=== PATIENT | male | born 1935 | race Caucasian/White ===

== ENCOUNTER 2017-04-03 13:59 | Inpatient (IN) | payer MEDICARE, BC ==
[~2017-04-03] VITALS: Ht 175.3 cm; Wt 52.2 kg
--- NOTE | 2017-04-03 14:00 | NUR ---
JUS FROM [facility] DT FEVER SINCE 1100 TODAY, NAD NOTED, VSS, PUT ON MONITOR, BLOOD SAMPLE SENT TO LAB, WAITING FOR MD HARRIS.
[2017-04-03] MEDS ORDERED: ACETAMINOPHEN 650 MG/SUPP.RECT RC ONE ×3 (14:30→16:43)
[2017-04-03] MEDS ORDERED: IV NS 0.9% 1,000 ML BAG IV ONE (14:30)
[2017-04-03 14:50] LABS: BASOPHILS % (AUTO) 0.1 % (0.0-2.0); HEMATOCRIT 32 % (39-51); HEMOGLOBIN 10.8 g/dL (13.5-17.5); LYMPHOCYTES # (AUTO) 0.6 /CMM (0.8-4.8); LYMPHOCYTES % (AUTO) 6.2 % (20.0-44.0); MEAN CORPUSCULAR HEMOGLOBIN 31 PG (26.0-33.0); MEAN CORPUSCULAR HGB CONC 34 g/dl (31.0-36.0); MEAN CORPUSCULAR VOLUME 92 fL (80-96); MONOCYTES # (AUTO) 0.1 /CMM (0.1-1.30); MONOCYTES % (AUTO) 1.2 % (2.0-12.0); NEUTROPHILS # (AUTO) 8.9 /CMM (1.8-8.9); NEUTROPHILS % (AUTO) 92.5 % (43.0-81.0); PLATELET COUNT (AUTO) 348 /CMM (150-450); RDW COEFFICIENT OF VARIATION 13.2 (11.5-15.0); RED BLOOD CELL COUNT(AUTO) 3.46 MIL/uL (4.5-6.0); WHITE BLOOD COUNT (AUTO) 9.6 K/uL (4.3-11.0)
[2017-04-03 14:57] LABS: INR 1.1 (0.87-1.13); PROTHROMBIN TIME 11.4 SECS (9.5-12.7)
[2017-04-03] MEDS ORDERED: MAGN400O6 GT (14:58)
[2017-04-03] MEDS ORDERED: CARB-93 GT (14:58)
[2017-04-03] MEDS ORDERED: ASPI81TA2 GT (14:58)
[2017-04-03] MEDS ORDERED: NA P133E RC (14:58)
[2017-04-03] MEDS ORDERED: ZOLP10TA2 GT (14:58)
[2017-04-03] MEDS ORDERED: DOCU50LI GT (14:58)
[2017-04-03] MEDS ORDERED: BISA10SU8 RC (14:58)
[2017-04-03] MEDS ORDERED: LACT-209 GT (14:58)
[2017-04-03] MEDS ORDERED: AMIN30LI4 GT (14:58)
[2017-04-03] MEDS ORDERED: ASCO500S2 GT (14:58)
[2017-04-03] MEDS ORDERED: IPRA0.2S9 IH (14:58)
[2017-04-03] MEDS ORDERED: ZINC220C8 GT (14:58)
[2017-04-03] MEDS ORDERED: ACET-2605 GT (14:58)
[2017-04-03] MEDS ORDERED: MULT1TAB11 GT (14:58)
[2017-04-03] MEDS ORDERED: METO25TA20 GT (14:58)
[2017-04-03] MEDS ORDERED: ALBU1.257 IH (14:58)
[2017-04-03] MEDS ORDERED: ACET650S26 GT (14:58)
[2017-04-03 15:01] LABS: CALCIUM, SERUM 8.9 mg/dL (8.5-10.1); CARBON DIOXIDE 27 mmol/L (21-32); CHLORIDE 112 mmol/L (98-107); CREATININE 1.5 mg/dL (0.6-1.3); GLUCOSE 136 mg/dL (74-106); POTASSIUM 4.5 mmol/L (3.5-5.1); SODIUM SERUM 150 mmol/L (136-145); UREA NITROGEN, BLOOD 75 mg/dL (7-18)
--- NOTE | 2017-04-03 15:03 | NUR ---
BED ASSIGNMENT 106
[2017-04-03 15:06] LABS: ALANINE AMINOTRANSFERASE 15 U/L (12-78); ALBUMIN 2.3 g/dL (3.4-5.0); ALKALINE PHOSPHATASE 85 U/L (46-116); ASPARTATE AMINOTRANSFERASE 90 U/L (15-37); BILIRUBIN,DIRECT 0.1 mg/dL (0.0-0.2); BILIRUBIN,TOTAL 0.7 mg/dL (0.2-1.0); TOTAL PROTEIN, SERUM 6.9 g/dL (6.4-8.2)
[2017-04-03 15:08] LABS: TROPONIN I 0.138 ng/mL (0.00-0.056)
[2017-04-03 15:28] LABS: APPEARANCE,URINE Clear (CLEAR); BILIRUBIN,URINE Negative (NEGATIVE); BLOOD, URINE Trace-intact Ery/uL (NEGATIVE); COLOR,URINE Dark (YELLOW); KETONES,URINE Trace (NEGATIVE); LEUKOCYTE ESTERASE ,URINE Negative (NEGATIVE); NITRITE, URINE Negative (NEGATIVE); PROTEIN,URINE 30 mg/dl (NEGATIVE); UGLUCOSE Negative (NEGATIVE)
[2017-04-03 15:42] LABS: WBC,URINE 0-2 /HPF (0-3)
--- NOTE | 2017-04-03 15:42 | NUR ---
CALLED DR OSORIO FOR PT ADMIT MESSAGE LEFT
[2017-04-03 15:43] LABS: BACTERIA,URINE Few /HPF (None Seen); SQUAMOUS EPITHELIAL CELL,UR Few /HPF (None Seen); URINE AMORPHOUS URATE Few /HPF (None Seen)
[2017-04-03 15:47] LABS: COARSE GRANULAR CASTS,URINE Few /LPF (None Seen); FINE GRANULAR CASTS,URINE Few /LPF (None Seen)
[2017-04-03 15:48] LABS: HYALINE CASTS, URINE Rare /LPF (None Seen)
[2017-04-03] MEDS ORDERED: ASPIRIN 300 MG/SUPP.RECT RC ONE ×2 (16:30→16:45)
[2017-04-03] MEDS ORDERED: CEFTRIAXONE 1GM BAG (ER ONLY) 50 ML IV ONE (16:30)
[2017-04-03] MEDS ORDERED: AZITHROMYCIN 500 MG in IV D5W 250 ML IV ONE (16:30)
[2017-04-03] MEDS ORDERED: CEFTRIAXONE 1 G in IV D5W 50 ML IV ONE (17:00)
--- NOTE | 2017-04-03 17:45 | NUR ---
MS1/NCR OPERATOR TO NM1 - ROOM 106 PT ARRIVED VIA GURNEY ACCOMPANIED BY ER NURSE GRACIELA AND ER ART FRAMING MANAGER, WITH PT'S (2) FAMILY MEMBERS. TRANSFERRED TO HOSPITAL BED. ADMITTED PROTOCOL INITIATED. PT IS ADMITTED FOR ASPIRATION PNEUMONIA UNDER THE CARE OF DR. OSORIO. REPORT GIVEN AT BEDSIDE. PT ARRIVED WITH ON GOING IV INFUSION OF AZITHROMYCIN, IV SITE PATENT WITH NO S/S OF INFECTION. YOUSIF CATHETER INTACT NOTED WITH YELLOW URINE OUTPUT. LUNG SOUNDS CLEAR. PT IS COMFORTABLE AT THIS TIME. AWAITING FOR ADMITTING ORDERS. CL WITHIN REACHED AND SAFETY MAINTAINED. ON GOING MONITORING.
[2017-04-03 18:00] VITALS: BP 101/53
[2017-04-03] MEDS ORDERED: FEE PK DOSING 1 MIN EA MC ONE (18:10)
[2017-04-03] MEDS: IV NS 0.9% 1,000 ML IV PRN (18:17)
[2017-04-03] MEDS: ENOXAPARIN SODIUM 30 MG/0.3 ML DISP.SYRIN SQ SCH (18:19)
[2017-04-03] MEDS ORDERED: ALBUTEROL FS 2.5 MG/0.5 ML VIAL.NEB NEB PRN (18:30)
[2017-04-03] MEDS ORDERED: ACETAMINOPHEN 650 MG/SUPP.RECT RC PRN (18:30)
[2017-04-03] MEDS ORDERED: ONDANSETRON 4 MG TAB.RAPDIS PO PRN (18:30)
[2017-04-03] MEDS ORDERED: IPRATROPIUM NEB FS 0.5 MG/2.5 ML AMPUL.NEB NEB PRN (18:30)
--- NOTE | 2017-04-03 19:45 | NUR ---
MS1/RN AM SHIFT END NOTES NO ACUTE CHANGE OF CONDITION NOTED SINCE PT WAS ADMITTED LATE THIS AFTERNOON. PT ENDORSED TO PM NURSE TO CONTINUE CARE, WELL TO COMPLETE ADMITTING PROTOCOLS. WITHIN ON GOING IV INFUSION OF NS @ 100CC/HR, IV SITE PATENT WITH NO S/S OF INFECTION. YOUSIF CATHETER INTACT. CL WITHIN REACHED AND SAFETY MAINTAINED.
[2017-04-03 20:00] VITALS: BP 112/55
[2017-04-03] MEDS: ZOSYN IVPB 2.25 G in IV D5W 50ml IV SCH (20:19)
[2017-04-03] MEDS: VANCOMYCIN 500 MG in IV D5W 100 ML IV SCH (21:10)
[2017-04-04] MEDS: ZOSYN IVPB 2.25 G in IV D5W 50ml IV SCH ×4 (01:23→20:22)
[2017-04-04] MEDS: ALBUTEROL FS 2.5 MG/3 ML VIAL.NEB NEB SCH ×4 (01:30→19:31)
--- NOTE | 2017-04-04 02:30 | NUR ---
RN/MS NOTES: CALLED [facility] AT [phone] TO VERIFY ABOUT THE FLU/PNA VACCINE. PER RAYA Benjamin NURSE " PATIENT HAD DECLINED IN THE BEGINING OF MARCH." PT. RESTING COMFORTABLE. NOT IN ANY ACUTE DISTRESS. GT CLAMPED INPLACE. PT. IS ON NPO STATUS. CALL LIGHT W/ REACH. ALL NEEDS MEET.
[2017-04-04 04:00] VITALS: BP 102/65
[2017-04-04] MEDS: IPRATROPIUM NEB FS 0.5 MG/2.5 ML AMPUL.NEB NEB SCH ×4 (06:00→19:31)
[2017-04-04] MEDS: IV NS 0.9% 1,000 ML IV PRN ×2 (06:17→17:32)
[2017-04-04 06:39] LABS: HEMATOCRIT 26 % (39-51); HEMOGLOBIN 8.7 g/dL (13.5-17.5); LYMPHOCYTES # (AUTO) 0.9 /CMM (0.8-4.8); LYMPHOCYTES % (AUTO) 8.3 % (20.0-44.0); MEAN CORPUSCULAR HEMOGLOBIN 32 PG (26.0-33.0); MEAN CORPUSCULAR HGB CONC 34 g/dl (31.0-36.0); MEAN CORPUSCULAR VOLUME 94 fL (80-96); MONOCYTES # (AUTO) 0.3 /CMM (0.1-1.30); MONOCYTES % (AUTO) 2.6 % (2.0-12.0); NEUTROPHILS # (AUTO) 9.5 /CMM (1.8-8.9); NEUTROPHILS % (AUTO) 89.1 % (43.0-81.0); PLATELET COUNT (AUTO) 270 /CMM (150-450); RDW COEFFICIENT OF VARIATION 14.3 (11.5-15.0); RED BLOOD CELL COUNT(AUTO) 2.72 MIL/uL (4.5-6.0); WHITE BLOOD COUNT (AUTO) 10.6 K/uL (4.3-11.0)
[2017-04-04 06:48] LABS: CALCIUM, SERUM 8.2 mg/dL (8.5-10.1); CARBON DIOXIDE 26 mmol/L (21-32); CHLORIDE 116 mmol/L (98-107); CREATININE 1.1 mg/dL (0.6-1.3); GLUCOSE 107 mg/dL (74-106); POTASSIUM 3.8 mmol/L (3.5-5.1); SODIUM SERUM 153 mmol/L (136-145); UREA NITROGEN, BLOOD 67 mg/dL (7-18)
--- NOTE | 2017-04-04 07:12 | NUR ---
MS/RN NOTES: PT IN BED RESTING W/ NO S/S OF ANY RESPIRATORY DISTRESS NOTED. CALL LIGHT W/ REACH. ALL NEEDS ATTENDED AND MEET. REPORT GIVEN TO THE NEXT SHIFT NURSE FOR VIDAL.
--- NOTE | 2017-04-04 07:30 | NUR ---
RN NOTES RECEIVED PT IN STABLE CONDITION, A&0X1 ON 3L NC NO SOB OR DISTRESS SAT 99. YOUSIF CATH DRAINING TO GRAVITY. GTUBE CLAMPED NO FEEDING. R AC 20G IV SITE DRY AND INTACT WITH NS@100ML/HR. BED LOCKED AND IN LOWEST POSITION, CALL LIGHT WITHIN REACH, SIDE RAILS UPX3, WILL CONT TO MONITOR.
[2017-04-04 08:00] VITALS: BP 116/68
[2017-04-04] MEDS: PANTOPRAZOLE 40 MG TABLET.DR PO SCH (08:39)
[2017-04-04] MEDS: Z GUARD REMEDY 2 OZ OINT TP SCH (08:40)
[2017-04-04] MEDS: VANCOMYCIN 500 MG in IV D5W 100 ML IV SCH ×2 (09:48→20:53)
[2017-04-04] MEDS ORDERED: ZOLPIDEM TARTRATE 10 MG TABLET GT PRN (11:00)
[2017-04-04] MEDS ORDERED: NA PHOS,M-B/NA PHOS,DI-BA 1 EA ENEMA RC PRN (11:00)
[2017-04-04] MEDS ORDERED: BISACODYL SUPP (10 MG) 10 MG/SUPP.RECT SUPP.RECT RC PRN (11:00)
[2017-04-04] MEDS ORDERED: ALBUTEROL HALF STRENGTH 1.25 MG/3 ML VIAL.NEB IH PRN (11:00)
[2017-04-04] MEDS ORDERED: MAGNESIUM HYDROXIDE 30 ML UDC GT PRN (11:00)
[2017-04-04] MEDS ORDERED: ACETAMINOPHEN 650 MG/20.3 ML UDC GT PRN (11:00)
[2017-04-04] MEDS ORDERED: IPRATROPIUM NEB FS 0.5 MG/2.5 ML AMPUL.NEB IH PRN (11:00)
[2017-04-04] MEDS ORDERED: METOPROLOL TARTRATE 25 MG TABLET GT PRN (11:44)
[2017-04-04] MEDS: ASPIRIN 81 MG TAB.CHEW GT SCH (12:15)
[2017-04-04] MEDS: ZINC SULFATE 220 MG CAPSULE GT SCH (12:15)
[2017-04-04] MEDS: DOCUSATE SODIUM LIQ 100 MG/10 ML UDC GT SCH (12:15)
[2017-04-04] MEDS: FIBERSOURCE HN 1,000 ML BOTTLE GT PRN (14:11)
[2017-04-04 16:00] VITALS: BP 118/68
--- NOTE | 2017-04-04 18:25 | NUR ---
RN NOTES PT REMAINED IN STABLE CONDITION THROUGHOUT THE SHIFT, NO SIGNIFICANT CHANGES, NO SOB OR DISTRESS. GTF STARTED, PT TOLERATING WELL. HOB ELEVATED, ALL NEEDS MET. PT CLEANED/TURNED/REPOSITIONED. BED LOCKED AND IN LOWEST POSITION, CALL LIGHT WITHIN REACH, SIDE RAILS UPX3.
--- NOTE | 2017-04-04 19:30 | NUR ---
MS/RN NOTES: RECEIVED PT. IN BED W/ HOB ELEVATED AT ALL TIMES. A/O X 1 FOLLOWS COMMANDS AND VERBAL TO CALLING HIS NAME. W/ O2 @ 3LPM VIA N/C SAT. 99%. NOT IN ANY ACUTE RESPIRATORY DISTRESS NOTED. W/ GTF IN PLACE TOLERATING WELL . 10 CC OF RESIDUAL NOTED. FLUSED AND PATENT. CALL LIGHT W/REACH. ALL NEEDS MEET. WILL CONTINUE TO MONITOR.
[2017-04-04 20:00] VITALS: BP 113/67
[2017-04-04] MEDS: ENOXAPARIN SODIUM 30 MG/0.3 ML DISP.SYRIN SQ SCH (20:28)
[2017-04-05] MEDS: ZOSYN IVPB 2.25 G in IV D5W 50ml IV SCH ×3 (01:05→13:27)
[2017-04-05] MEDS: ALBUTEROL FS 2.5 MG/3 ML VIAL.NEB NEB SCH ×4 (01:13→20:03)
[2017-04-05] MEDS: IPRATROPIUM NEB FS 0.5 MG/2.5 ML AMPUL.NEB NEB SCH ×4 (01:13→20:03)
[2017-04-05] MEDS: FIBERSOURCE HN 1,000 ML BOTTLE GT PRN ×2 (03:28→18:08)
[2017-04-05 04:00] VITALS: BP 129/68
--- NOTE | 2017-04-05 04:15 | NUR ---
RN/MS NOTES: T- 100.2 NOTED. PRN TYLENOL GIVEN VIA GT. WILL CONTINUE TO MONITOR. CALL LIGHT W/ REACH. NOT IN ANY ACUTE DISTRESS NOTED.
[2017-04-05 05:08] VITALS: BP 129/68
--- NOTE | 2017-04-05 05:09 | NUR ---
RN /MS NOTES: T-98.2. PT. RESTING COMFORTABLE IN BED. TURNED AND RESPOSITIONED Q 2 HRS. GTF TOLERATING WELL. ALL NEEDS MEET.
[2017-04-05] MEDS: IV NS 0.9% 1,000 ML IV PRN (06:13)
--- NOTE | 2017-04-05 06:48 | NUR ---
RN/MS NOTES: PT. IN BED RESTING W/ HOB ELEVATED. ON ASPIRATION AND SAFETY PRECAUTION MAINTAINED. ON GTF TOLERATING WELL. ALL NEEDS MEET AND ATTENDED. REPORT GIVEN TO THE NEXT SHIFT NURSE FOR VIDAL.
[2017-04-05 07:14] LABS: HEMATOCRIT 26 % (39-51); HEMOGLOBIN 8.6 g/dL (13.5-17.5); LYMPHOCYTES # (AUTO) 0.7 /CMM (0.8-4.8); LYMPHOCYTES % (AUTO) 5.1 % (20.0-44.0); MEAN CORPUSCULAR HEMOGLOBIN 31 PG (26.0-33.0); MEAN CORPUSCULAR HGB CONC 33 g/dl (31.0-36.0); MEAN CORPUSCULAR VOLUME 94 fL (80-96); MONOCYTES # (AUTO) 0.3 /CMM (0.1-1.30); MONOCYTES % (AUTO) 2.5 % (2.0-12.0); NEUTROPHILS % (AUTO) 92.4 % (43.0-81.0); PLATELET COUNT (AUTO) 314 /CMM (150-450); RDW COEFFICIENT OF VARIATION 14.5 (11.5-15.0); RED BLOOD CELL COUNT(AUTO) 2.75 MIL/uL (4.5-6.0)
--- NOTE | 2017-04-05 07:17 | NUR ---
RN NOTES RECEIVED PT IN STABLE CONDITION, RESTING IN BED. ON 3L NC, NO SOB OR DISTRESS NOTED. A&0X1, ABLE TO FOLLOW SIMPLE COMMANDS/ANSWER SIMPLE QUESTIONS. GTF AT 55ML/HR NO RESIDUAL, TOLERATING WELL. L AC 20G IVF AT 100ML/HR. YOUSIF DRAINING TO GRAVITY, YELLOW IN COLOR. BED LOCKED AND IN LOWEST POSITION, CALL LIGHT WITHIN REACH, HOB ELEVATED, SIDE RAILS UPX3, WILL CONT TO MONITOR.
[2017-04-05 07:29] LABS: CALCIUM, SERUM 7.9 mg/dL (8.5-10.1); CARBON DIOXIDE 24 mmol/L (21-32); CHLORIDE 120 mmol/L (98-107); CREATININE 0.9 mg/dL (0.6-1.3); GLUCOSE 166 mg/dL (74-106); MAGNESIUM 2.2 mg/dL (1.8-2.4); POTASSIUM 3.6 mmol/L (3.5-5.1); SODIUM SERUM 154 mmol/L (136-145); UREA NITROGEN, BLOOD 49 mg/dL (7-18)
[2017-04-05 08:00] VITALS: BP 131/73
[2017-04-05] MEDS: PANTOPRAZOLE 40 MG TABLET.DR PO SCH (08:34)
[2017-04-05] MEDS: MULTIVIT, IRON, MIN NO. 8, FA 1 TAB PO SCH (08:34)
[2017-04-05] MEDS: DOCUSATE SODIUM LIQ 100 MG/10 ML UDC GT SCH (08:34)
[2017-04-05] MEDS: ASCORBIC ACID 500 MG TABLET PO SCH (08:34)
[2017-04-05] MEDS: ASPIRIN 81 MG TAB.CHEW GT SCH (08:34)
[2017-04-05] MEDS: ZINC SULFATE 220 MG CAPSULE GT SCH (08:34)
[2017-04-05] MEDS: Z GUARD REMEDY 2 OZ OINT TP SCH (08:35)
[2017-04-05] MEDS: VANCOMYCIN 500 MG in IV D5W 100 ML IV SCH (09:18)
--- NOTE | 2017-04-05 13:07 | NUR ---
WOUND CARE CONSULT PATIENT SEEN AND SKIN ASSESSED. PATIENT NOTED TO MOISTURE RELATED EXCORIATION ON THE BUTTOCKS AND A PUSTULE ON UPPER BACK, POA. ROLO MILLIGAN, PLACED TREATMENT ORDERS OF BIANCA WELL TURNING SCHEDULE TO ASSIST IN PATIENT TURNING. HEEL FLOATING ORDER ADDED. PATIENT TONY 11; NEEDS TOTAL ASSISTANCE WITH TURNING AND REPOSITIONING. CARE PLAN IN PLACE. PT ON STRIKER ISOFLEX AIR MATTRESS. WILL CONTINUE TO FOLLOW PATIENT NEEDED Addendum: 04/05/17 at 1310 by CRYSTAL NULL RN Amended: Links added.
[2017-04-05 16:00] VITALS: BP 133/68
[2017-04-05] MEDS: PIPERACILLIN /TAZOBACTAM 3.375 G in IV D5W 50 ML IV SCH (17:14)
--- NOTE | 2017-04-05 18:21 | NUR ---
RN NOTES PT REMAINED IN STABLE CONDITION THROUGHOUT THE SHIFT, NO SIGNIFICANT CHANGES. ALL NEEDS MET. NO SOB OR DISTRESS NOTED. SIDE RAILS UPX3, BED LOCKED AND IN LOWEST POSITION, CALL LIGHT WITHIN REACH, WILL ENDORSE TO ONCOMING SHIFT.
--- NOTE | 2017-04-05 19:10 | NUR ---
RN OPENING NOTES RECEIVED REPORT FROM NICOLLE DRISCOLL. PATIENT A/A/O X1, ABLE TO FOLLOW SIMPLE COMMANDS. BREATHING EVEN & UNLABORED, ON O2 3L VIA NC. DENIES SOB OR DIFFICULTY BREATHING. PULSES PRESENT. NO DISTRESS NOTED. LEFT AC IV #20 INTACT & PATENT W/ DRESSING CDI & IVF NS @ 100 ML/HR. G-TUBE INTACT & FLUSHING WELL W/ GTF FIBERSOURCE @ 55 ML/HR. NO RESIDUAL NOTED. YOUSIF CATH INTACT, DRAINING YELLOW URINE. DENIES ANY PAIN OR DISCOMFORT @ THIS TIME. SAFETY MEASURES IN PLACE W/ SIDE RAILS UP, BED LOCKED IN LOWEST POSITION, CALL LIGHT WITHIN REACH. WILL CONTINUE TO MONITOR.
[2017-04-05 20:00] VITALS: BP 132/67
[2017-04-05] MEDS: VANCOMYCIN 0.75 GM in IV D5W 250 ML IV SCH (20:01)
[2017-04-05] MEDS: ENOXAPARIN SODIUM 40 MG/0.4 ML DISP.SYRIN SQ SCH (20:02)
[2017-04-06] MEDS: PIPERACILLIN /TAZOBACTAM 3.375 G in IV D5W 50 ML IV SCH ×5 (00:14→23:23)
[2017-04-06] MEDS: ALBUTEROL FS 2.5 MG/3 ML VIAL.NEB NEB SCH ×4 (01:57→20:17)
[2017-04-06] MEDS: IPRATROPIUM NEB FS 0.5 MG/2.5 ML AMPUL.NEB NEB SCH ×4 (01:57→20:17)
[2017-04-06 04:00] VITALS: BP 137/76
[2017-04-06 06:37] LABS: EOSINOPHILS % (AUTO) 0.2 % (0.0-6.0); HEMATOCRIT 26 % (39-51); HEMOGLOBIN 8.6 g/dL (13.5-17.5); LYMPHOCYTES # (AUTO) 0.6 /CMM (0.8-4.8); MEAN CORPUSCULAR HEMOGLOBIN 32 PG (26.0-33.0); MEAN CORPUSCULAR HGB CONC 34 g/dl (31.0-36.0); MEAN CORPUSCULAR VOLUME 94 fL (80-96); MONOCYTES # (AUTO) 0.4 /CMM (0.1-1.30); MONOCYTES % (AUTO) 3.1 % (2.0-12.0); NEUTROPHILS % (AUTO) 91.7 % (43.0-81.0); PLATELET COUNT (AUTO) 292 /CMM (150-450); RDW COEFFICIENT OF VARIATION 14.5 (11.5-15.0); RED BLOOD CELL COUNT(AUTO) 2.71 MIL/uL (4.5-6.0)
--- NOTE | 2017-04-06 07:00 | NUR ---
RN NOTES RECEIVED PT ON BED,A/Ox1 , RESPIRATION EVEN AND UNLABORED, ON O2 AT 3L N/C , NO SOB NOTED, IV F NS AT 100CC/HR RUNNING VIA R FA IV SITE G 22, IV SITE CDI. FIBERSOURCE RUNNING AT 55CC/ HR VIA GT , NO TF RESIDUAL NOTED. YOUSIF CATH INTACT, DRAINING YELLOW URINE. SR UP x3, CALL LIGHT WITHIN EASY REACH, BED LOCKED IN LOWEST POSITION, WILL CONTINUE TO MONITOR PT CLOSELY .
--- NOTE | 2017-04-06 07:22 | NUR ---
RN CLOSING NOTES PATIENT RESTING COMFORTABLY IN BED. NO ACUTE RESPIRATORY DISTRESS. NO SIGNIFICANT CHANGES DURING SHIFT. YOUSIF CATH REMAINED IN PLACE. G-TUBE PATENT W/ NE RESIDUALS NOTED. IV SITE CHANGED. ALL DUE MEDS GIVEN. SAFETY MEASURES IN PLACE. WILL ENDORSE VIDAL TO ONCOMING NURSE.
[2017-04-06 07:48] LABS: CALCIUM, SERUM 8.1 mg/dL (8.5-10.1); CARBON DIOXIDE 27 mmol/L (21-32); CHLORIDE 120 mmol/L (98-107); CREATININE 0.8 mg/dL (0.6-1.3); GLUCOSE 141 mg/dL (74-106); MAGNESIUM 2.1 mg/dL (1.8-2.4); POTASSIUM 3.7 mmol/L (3.5-5.1); SODIUM SERUM 155 mmol/L (136-145); UREA NITROGEN, BLOOD 29 mg/dL (7-18)
[2017-04-06 08:00] VITALS: BP 136/71
[2017-04-06] MEDS: ASPIRIN 81 MG TAB.CHEW GT SCH (08:05)
[2017-04-06] MEDS: ZINC SULFATE 220 MG CAPSULE GT SCH (08:05)
[2017-04-06] MEDS: DOCUSATE SODIUM LIQ 100 MG/10 ML UDC GT SCH (08:05)
[2017-04-06] MEDS: PANTOPRAZOLE 40 MG TABLET.DR PO SCH (08:05)
[2017-04-06] MEDS: MULTIVIT, IRON, MIN NO. 8, FA 1 TAB PO SCH (08:05)
[2017-04-06] MEDS: ASCORBIC ACID 500 MG TABLET PO SCH (08:05)
[2017-04-06] MEDS: VANCOMYCIN 0.75 GM in IV D5W 250 ML IV SCH ×2 (08:07→19:47)
[2017-04-06] MEDS: Z GUARD REMEDY 2 OZ OINT TP SCH (08:08)
[2017-04-06] MEDS: IV NS 0.9% 1,000 ML IV PRN (09:46)
--- NOTE | 2017-04-06 11:00 | NUR ---
RN NOTES DR. OSORIO NOTIFIED REGARDING NA= 155, NEW ORDER GIVEN FOR D5W AT 60CC/HR , CONTINUE TO MONITOR .
[2017-04-06] MEDS ORDERED: IV D5W 1,000 ML IV SCH (12:30)
[2017-04-06] MEDS: IV D5W 1,000 ML IV PRN (13:09)
[2017-04-06 16:00] VITALS: BP 140/77
[2017-04-06] MEDS: FIBERSOURCE HN 1,000 ML BOTTLE GT PRN (16:56)
--- NOTE | 2017-04-06 18:19 | NUR ---
RN NOTES VSS STABLE , PT REMANS THE SAME , NO DISTRESS NOTED, YOUSIF DRAINING TO GRAVITY , TOLERATING TF FIBERSOURCE AT 55CC/ HR WELL , NO RESIDUAL NOTE, SR UP x3, CALL LIGHT WITHIN EASY REACH , NO SIGNIFICANT CHANGES NOTED ON THIS SHIFT.
--- NOTE | 2017-04-06 19:10 | NUR ---
RN OPENING NOTES RECEIVED REPORT FROM DELORIS DRISCOLL. PATIENT A/A/O X1, ABLE TO FOLLOW SIMPLE COMMANDS. BREATHING EVEN & UNLABORED, ON O2 3L VIA NC. DENIES SOB OR DIFFICULTY BREATHING. PULSES PRESENT. RIGHT FOREARM IV #22 INTACT & PATENT W/ DRESSING CDI & IVF D5W @ 60 ML/HR. G-TUBE INTACT & FLUSHING WELL W/ GTF FIBERSOURCE @ 55 ML/HR. NO RESIDUAL NOTED. YOUSIF CATH INTACT, DRAINING YELLOW URINE. DENIES ANY PAIN OR DISCOMFORT @ THIS TIME. SAFETY MEASURES IN PLACE W/ SIDE RAILS UP, BED LOCKED IN LOWEST POSITION, CALL LIGHT WITHIN REACH. WILL CONTINUE TO MONITOR.
[2017-04-06 20:00] VITALS: BP 133/77
[2017-04-06] MEDS: ENOXAPARIN SODIUM 40 MG/0.4 ML DISP.SYRIN SQ SCH (21:09)
[2017-04-07] MEDS: IPRATROPIUM NEB FS 0.5 MG/2.5 ML AMPUL.NEB NEB SCH ×4 (01:57→19:04)
[2017-04-07] MEDS: ALBUTEROL FS 2.5 MG/3 ML VIAL.NEB NEB SCH ×4 (01:57→19:04)
[2017-04-07 04:00] VITALS: BP 149/78
[2017-04-07] MEDS: FIBERSOURCE HN 1,000 ML BOTTLE GT PRN (04:42)
[2017-04-07] MEDS: PIPERACILLIN /TAZOBACTAM 3.375 G in IV D5W 50 ML IV SCH ×2 (05:28→12:46)
--- NOTE | 2017-04-07 07:00 | NUR ---
RN CLOSING NOTES PATIENT NOTED TO BE SWEATING PROFUSELY W/ SOB NOTED. ON O2 3L VIA NC & SATING @ 91-92%. VS & BS CHECKED. PRN METOPROLOL GIVEN FOR BP 184/96 & HR 116. SALES SOLUTIONS REPRESENTATIVE CALLED FOR STAT ABG. STAT CXR ALSO DONE. WILL CONTINUE TO MONITOR & AWAIT RESULTS.
[2017-04-07 07:10] LABS: ABG BASE EXCESS -0.1 mmol/L; ABG PCO2 41.1 mmHg (35.0-45.0); ABG PH 7.397 (7.350-7.450); ABG PO2 69.1 mmHg (75.0-100.0); COHb 0.5 % (0.5-1.5); MetHb 0.3 % (0.0-1.5); O2Hb 92.3 % (94.0-97.0); SITE, ABG Right Radial; VENT MODE, BG nasal cannula
--- NOTE | 2017-04-07 07:30 | NUR ---
RN CLOSING NOTES ABG RESULTS RECEIVED & WNL. PATIENT PLACE ON VENTURI MASK W/ O2 @ 8L D/T PATIENT BEING A MOUTH BREATHER. SATING WELL @ 98%. NO FURTHER SOB NOTED. WILL ENDORSE PENDING CXR RESULTS AND VIDAL TO ONCOMING NURSE.
[2017-04-07 08:00] VITALS: BP 146/75
[2017-04-07 08:05] LABS: CALCIUM, SERUM 8.3 mg/dL (8.5-10.1); CARBON DIOXIDE 27 mmol/L (21-32); CHLORIDE 111 mmol/L (98-107); CREATININE 0.7 mg/dL (0.6-1.3); GLUCOSE 157 mg/dL (74-106); SODIUM SERUM 147 mmol/L (136-145); UREA NITROGEN, BLOOD 22 mg/dL (7-18)
[2017-04-07 08:07] LABS: EOSINOPHILS # (AUTO) 0.1 /CMM (0.0-0.7); EOSINOPHILS % (AUTO) 0.6 % (0.0-6.0); HEMATOCRIT 34 % (39-51); LYMPHOCYTES # (AUTO) 0.9 /CMM (0.8-4.8); LYMPHOCYTES % (AUTO) 4.3 % (20.0-44.0); MEAN CORPUSCULAR HEMOGLOBIN 31 PG (26.0-33.0); MEAN CORPUSCULAR HGB CONC 33 g/dl (31.0-36.0); MEAN CORPUSCULAR VOLUME 94 fL (80-96); MONOCYTES # (AUTO) 0.6 /CMM (0.1-1.30); MONOCYTES % (AUTO) 3.1 % (2.0-12.0); NEUTROPHILS # (AUTO) 18.8 /CMM (1.8-8.9); PLATELET COUNT (AUTO) 412 /CMM (150-450); RDW COEFFICIENT OF VARIATION 14.4 (11.5-15.0); RED BLOOD CELL COUNT(AUTO) 3.56 MIL/uL (4.5-6.0); WHITE BLOOD COUNT (AUTO) 20.5 K/uL (4.3-11.0)
[2017-04-07] MEDS: ASPIRIN 81 MG TAB.CHEW GT SCH (08:42)
[2017-04-07] MEDS: PANTOPRAZOLE 40 MG TABLET.DR PO SCH (08:42)
[2017-04-07] MEDS: DOCUSATE SODIUM LIQ 100 MG/10 ML UDC GT SCH (08:42)
[2017-04-07] MEDS: Z GUARD REMEDY 2 OZ OINT TP SCH (08:42)
[2017-04-07] MEDS: ASCORBIC ACID 500 MG TABLET PO SCH (08:42)
[2017-04-07] MEDS: MULTIVIT, IRON, MIN NO. 8, FA 1 TAB PO SCH (08:42)
[2017-04-07] MEDS: ZINC SULFATE 220 MG CAPSULE GT SCH (08:45)
[2017-04-07] MEDS: VANCOMYCIN 0.75 GM in IV D5W 250 ML IV SCH (08:45)
[2017-04-07] MEDS: IV D5W 1,000 ML IV PRN (08:49)
[2017-04-07] MEDS: BUMETANIDE INJ 0.25 MG/ML VIAL IV SCH ×2 (12:46→18:15)
[2017-04-07] MEDS: IV NS 0.9% 250 ML IV PRN (13:24)
--- NOTE | 2017-04-07 15:18 | NUR ---
SKIP OPERATOR CALLED PATIENT ON RESPIRATORY DISTRESS DESPITE SUCTIONING,
[2017-04-07 15:29] VITALS: BP 90/50
--- NOTE | 2017-04-07 15:37 | NUR ---
S/P CLEARING DISTRIBUTION CLERK DEEP SUCTIONING DONE,PLACED ON 100% NONREBREATHER,STILL ON AGONAL BREATHING,MD NOTIFIED ,PER POLST DNR,FAMILY NOTIFIED ,WILL MONITOR PT.
[2017-04-07 16:00] VITALS: BP_SYST 130; BP_DIAS 64; BP_DIAS 68
--- NOTE | 2017-04-07 16:00 | NUR ---
RN NOTE AT 1515 RT WAS IN ROOM WITH PATIENT WHEN HE STARTED TO DESATURATE. RESEARCH COORDINATOR WAS CALLED. BLOOD GLUCOSE:146, BP:130/64, HR:103, O2 SAT: 54%. PATIENT DNR/DNI STATUS. DEEP SUCTIONING WAS PERFORMED BY RT. PATIENT WAS PUT ON NON-REBREATHER MASK AT 15L. WAS TELEPHONED AND MD NOTIFIED. AT 1600 BP: 90/62, HR; 103 AND O2 99% WITH NON-REBREATHER.
[2017-04-07] MEDS ORDERED: MORPHINE SULFATE INJ 2 MG/ML DISP.SYRIN IV PRN (17:00)
--- NOTE | 2017-04-07 17:02 | NUR ---
DR. OSORIO NOTIFIED AGAIN PT AGONAL BREATHING MADE AWARE OF CODE STATUS PER FAMILY/POLST WITH NEW ORDERS LEFT AND CARRIED OUT.
[2017-04-07] MEDS: MEROPENEM 1 G in IV NS 0.9% 100 ML IV SCH (18:15)
--- NOTE | 2017-04-07 19:30 | NUR ---
RN/MS NOTES: RECEIVED PT. IN BED W/ HOB ELEVATED. NON VERBAL OPENS EYES ONLY TO TACTILE STIMULI. PT.IN NON REBREATHABLE MASK SAT. 100%. O2 TIRATE IT TO 12LPM VIA VENTURI MASK BY R.T. @ 40% SAT. 97 -98%. W/ GTF TOLERATING WELL. W/ IV W/ NO S/S OF INFECTION/INFILTRATION NOTED. PRESENT AT BEDSIDE. CALL LIGHT W/ REACH. WILL CONTINUE TO KEEP A CLOSE MONITOR.
[2017-04-07 20:00] VITALS: BP_SYST 92; BP_SYST 95; BP_DIAS 58
[2017-04-07] MEDS: VANCOMYCIN 1 GM in IV D5W 250 ML IV SCH (20:00)
[2017-04-07] MEDS: ENOXAPARIN SODIUM 40 MG/0.4 ML DISP.SYRIN SQ SCH (20:01)
--- NOTE | 2017-04-07 22:00 | NUR ---
RN/MS NOTES: KISHOR GAVE HER CELL # [phone] OR FARNAM [phone] TO CALL INCASE OF ANY EVENT. AND DAUGHTER LEFT.
--- NOTE | 2017-04-07 22:30 | NUR ---
RN/MS NOTES: PT. DAUGHTER WHO IS A M.D. HERSELF CAME AND WANTED TO FIND OUT PT. LABS AND V/S. MORE FAMILY MEMBERS CAME BY. PT. IN BED W/ NO S/S OF RESPIRATORY DISTRESS NOTED. WILL CONTINUE TO MONITOR CLOSELY.
[2017-04-08] MEDS: ALBUTEROL FS 2.5 MG/3 ML VIAL.NEB NEB SCH ×4 (00:41→19:14)
[2017-04-08] MEDS: IPRATROPIUM NEB FS 0.5 MG/2.5 ML AMPUL.NEB NEB SCH ×4 (00:41→19:14)
[2017-04-08 04:00] VITALS: BP 93/61
[2017-04-08] MEDS: MEROPENEM 1 G in IV NS 0.9% 100 ML IV SCH ×2 (05:02→17:02)
[2017-04-08 06:44] LABS: EOSINOPHILS % (AUTO) 0.2 % (0.0-6.0); HEMATOCRIT 27 % (39-51); HEMOGLOBIN 8.8 g/dL (13.5-17.5); LYMPHOCYTES # (AUTO) 0.8 /CMM (0.8-4.8); LYMPHOCYTES % (AUTO) 5.2 % (20.0-44.0); MEAN CORPUSCULAR HEMOGLOBIN 31 PG (26.0-33.0); MEAN CORPUSCULAR HGB CONC 33 g/dl (31.0-36.0); MEAN CORPUSCULAR VOLUME 92 fL (80-96); MONOCYTES # (AUTO) 0.4 /CMM (0.1-1.30); MONOCYTES % (AUTO) 2.3 % (2.0-12.0); NEUTROPHILS % (AUTO) 92.3 % (43.0-81.0); PLATELET COUNT (AUTO) 346 /CMM (150-450); RDW COEFFICIENT OF VARIATION 14.4 (11.5-15.0); RED BLOOD CELL COUNT(AUTO) 2.88 MIL/uL (4.5-6.0); WHITE BLOOD COUNT (AUTO) 16.2 K/uL (4.3-11.0)
[2017-04-08] MEDS: PANTOPRAZOLE 40 MG TABLET.DR PO SCH (06:46)
[2017-04-08 07:06] LABS: CALCIUM, SERUM 8.1 mg/dL (8.5-10.1); CARBON DIOXIDE 30 mmol/L (21-32); CHLORIDE 110 mmol/L (98-107); CREATININE 0.9 mg/dL (0.6-1.3); GLUCOSE 131 mg/dL (74-106); MAGNESIUM 1.9 mg/dL (1.8-2.4); POTASSIUM 3.7 mmol/L (3.5-5.1); SODIUM SERUM 148 mmol/L (136-145); UREA NITROGEN, BLOOD 30 mg/dL (7-18)
--- NOTE | 2017-04-08 07:07 | NUR ---
RN NOTES: RECEIVED PT ON BED , NONVERBAL , NON VERBAL OPENS EYES ONLY TO TACTILE STIMULI. ON VENTI, MASK AT 30%, O2 SA 96%, FIBERSOURCE AT 55CC/HR RUNNING VIA GT , NO RESIDUAL NOTED, TOLERATING WELL, R FA IV SITE G 22 CDI, BED LOCKED AND IN LOWEST POSITION , CALL LIGHT WITHIN EASY REACH. WILL CONTINUE TO MONITOR CLSOELY
[2017-04-08 08:00] VITALS: BP 95/57
[2017-04-08] MEDS: MULTIVIT, IRON, MIN NO. 8, FA 1 TAB PO SCH (08:11)
[2017-04-08] MEDS: ASPIRIN 81 MG TAB.CHEW GT SCH (08:11)
[2017-04-08] MEDS: ASCORBIC ACID 500 MG TABLET PO SCH (08:11)
[2017-04-08] MEDS: BUMETANIDE INJ 0.25 MG/ML VIAL IV SCH ×2 (08:11→17:02)
[2017-04-08] MEDS: DOCUSATE SODIUM LIQ 100 MG/10 ML UDC GT SCH (08:11)
[2017-04-08] MEDS: ZINC SULFATE 220 MG CAPSULE GT SCH (08:11)
[2017-04-08] MEDS: VANCOMYCIN 1 GM in IV D5W 250 ML IV SCH (08:14)
[2017-04-08] MEDS: Z GUARD REMEDY 2 OZ OINT TP SCH (08:14)
--- NOTE | 2017-04-08 12:00 | NUR ---
RN NOTES O2 SAT 96%. NO SOB NOTED, CONTINUE TO MONITOR.
[2017-04-08 16:00] VITALS: BP 98/68
--- NOTE | 2017-04-08 18:00 | NUR ---
RN NOTES O2 SAT 97%, PT STILL ON VENTI MASK WITH O2 AT6L , VSS STABLE , YOUSIF DRAINING TO GRAVITY WITH YELLOW CLEAR URIN , TOLERATING TF WELL AT 65CC/HR , SR UP x3, CALL LIGHT WITHIN EASY REACH. WILL ENDORSE TO PELLET MACHINE OPERATOR NURSE FOR VIDAL.
--- NOTE | 2017-04-08 19:10 | NUR ---
RN OPENING NOTES RECEIVED REPORT FROM DELORIS DRISCOLL. PATIENT A/A/O X1, RESPONSIVE TO VERBAL & TACTILE STIMULI & ABLE TO FOLLOW SIMPLE COMMANDS. BREATHING EVEN & UNLABORED, ON VENTURI MASK @ 30% AND O2 6L. NO RESPIRATORY DISTRESS NOTED W/ O2 SAT @ 95%. PULSES PRESENT. RIGHT FOREARM IV #22 INTACT & PATENT W/ DRESSING CDI, ON TKO. G-TUBE INTACT & FLUSHING WELL W/ GTF FIBERSOURCE @ 65 ML/HR. NO RESIDUAL NOTED. YOUSIF CATH INTACT, DRAINING YELLOW URINE. NO S/S OF PAIN OR DISCOMFORT @ THIS TIME. SAFETY MEASURES IN PLACE W/ SIDE RAILS UP, BED LOCKED IN LOWEST POSITION, CALL LIGHT WITHIN REACH. WILL CONTINUE TO MONITOR.
[2017-04-08 20:00] VITALS: BP 113/70
[2017-04-08] MEDS: ENOXAPARIN SODIUM 40 MG/0.4 ML DISP.SYRIN SQ SCH (20:27)
[2017-04-08] MEDS: IV NS 0.9% 250 ML IV PRN (20:27)
[2017-04-08] MEDS: FIBERSOURCE HN 1,000 ML BOTTLE GT PRN (23:52)
[2017-04-09] MEDS: IPRATROPIUM NEB FS 0.5 MG/2.5 ML AMPUL.NEB NEB SCH ×4 (00:37→19:40)
[2017-04-09] MEDS: ALBUTEROL FS 2.5 MG/3 ML VIAL.NEB NEB SCH ×4 (00:37→19:40)
[2017-04-09 04:00] VITALS: BP 134/89
[2017-04-09] MEDS: MEROPENEM 1 G in IV NS 0.9% 100 ML IV SCH ×2 (06:00→17:02)
[2017-04-09 06:32] LABS: EOSINOPHILS % (AUTO) 0.3 % (0.0-6.0); HEMATOCRIT 29 % (39-51); HEMOGLOBIN 9.4 g/dL (13.5-17.5); LYMPHOCYTES # (AUTO) 0.8 /CMM (0.8-4.8); LYMPHOCYTES % (AUTO) 6.1 % (20.0-44.0); MEAN CORPUSCULAR HEMOGLOBIN 30 PG (26.0-33.0); MEAN CORPUSCULAR HGB CONC 33 g/dl (31.0-36.0); MEAN CORPUSCULAR VOLUME 92 fL (80-96); MONOCYTES # (AUTO) 0.5 /CMM (0.1-1.30); MONOCYTES % (AUTO) 3.8 % (2.0-12.0); NEUTROPHILS # (AUTO) 11.6 /CMM (1.8-8.9); NEUTROPHILS % (AUTO) 89.8 % (43.0-81.0); PLATELET COUNT (AUTO) 380 /CMM (150-450); RDW COEFFICIENT OF VARIATION 14.2 (11.5-15.0); RED BLOOD CELL COUNT(AUTO) 3.11 MIL/uL (4.5-6.0); WHITE BLOOD COUNT (AUTO) 12.9 K/uL (4.3-11.0)
[2017-04-09 06:57] LABS: CALCIUM, SERUM 8.4 mg/dL (8.5-10.1); CARBON DIOXIDE 33 mmol/L (21-32); CHLORIDE 106 mmol/L (98-107); CREATININE 0.8 mg/dL (0.6-1.3); GLUCOSE 154 mg/dL (74-106); MAGNESIUM 2.1 mg/dL (1.8-2.4); POTASSIUM 3.6 mmol/L (3.5-5.1); SODIUM SERUM 146 mmol/L (136-145); UREA NITROGEN, BLOOD 35 mg/dL (7-18); VANCOMYCIN,TROUGH 17 ug/ml (12-20)
[2017-04-09 08:00] VITALS: BP 126/71
[2017-04-09] MEDS: DOCUSATE SODIUM LIQ 100 MG/10 ML UDC GT SCH (09:00)
[2017-04-09] MEDS: ASCORBIC ACID 500 MG TABLET PO SCH (09:15)
[2017-04-09] MEDS: ASPIRIN 81 MG TAB.CHEW GT SCH (09:15)
[2017-04-09] MEDS: MULTIVIT, IRON, MIN NO. 8, FA 1 TAB PO SCH (09:15)
[2017-04-09] MEDS: ZINC SULFATE 220 MG CAPSULE GT SCH (09:16)
[2017-04-09] MEDS: BUMETANIDE INJ 0.25 MG/ML VIAL IV SCH (09:16)
[2017-04-09] MEDS: Z GUARD REMEDY 2 OZ OINT TP SCH (09:16)
[2017-04-09] MEDS: PANTOPRAZOLE 40 MG TABLET.DR PO SCH (09:18)
[2017-04-09] MEDS: VANCOMYCIN 0.75 GM in IV D5W 250 ML IV SCH ×2 (11:53→21:01)
[2017-04-09 16:00] VITALS: BP 114/67
--- NOTE | 2017-04-09 17:59 | NUR ---
RN NOTE DR. OSORIO AND PATIENT'S PUT IN CONTACT ABOUT PLAN OF CARE. PATIENT'S EXPRESSED INTEREST IN HOSPICE CARE. MD AWARE OF DECREASED LOC (MOVES TO LOCALIZED PAIN ONLY) AND SEVERE DRY MOUTH.
--- NOTE | 2017-04-09 19:30 | NUR ---
RN/MS NOTES: RECEIVED PT. IN BED W/ HOB ELEVATED. NON VERBAL OPENS EYES ONLY TO TACTILE STIMULI. PT.IN NON VENTURI MASK 30% @ 6LPM SAT. 98%W/ GTF TOLERATING WELL. W/ IV W/ NO S/S OF INFECTION/INFILTRATION NOTED. F/C INPLACE DRAINING TO CLEAR YELLOW URINE VIA GRAVITY. CALL LIGHT W/ REACH. WILL CONTINUE TO KEEP A CLOSE MONITOR.
[2017-04-09 20:00] VITALS: BP 119/68
[2017-04-09] MEDS: ENOXAPARIN SODIUM 40 MG/0.4 ML DISP.SYRIN SQ SCH (21:01)
[2017-04-10] MEDS: ALBUTEROL FS 2.5 MG/3 ML VIAL.NEB NEB SCH ×4 (01:45→19:26)
[2017-04-10] MEDS: IPRATROPIUM NEB FS 0.5 MG/2.5 ML AMPUL.NEB NEB SCH ×4 (01:45→19:26)
[2017-04-10 04:00] VITALS: BP 100/55
[2017-04-10] MEDS: MEROPENEM 1 G in IV NS 0.9% 100 ML IV SCH ×2 (05:03→18:12)
[2017-04-10] MEDS ORDERED: BUMETANIDE INJ 0.25 MG/ML VIAL IV SCH (06:00)
[2017-04-10 06:30] LABS: BASOPHILS % (AUTO) 0.1 % (0.0-2.0); EOSINOPHILS % (AUTO) 0.2 % (0.0-6.0); HEMATOCRIT 27 % (39-51); HEMOGLOBIN 9.2 g/dL (13.5-17.5); LYMPHOCYTES # (AUTO) 0.7 /CMM (0.8-4.8); LYMPHOCYTES % (AUTO) 4.5 % (20.0-44.0); MEAN CORPUSCULAR HEMOGLOBIN 31 PG (26.0-33.0); MEAN CORPUSCULAR HGB CONC 34 g/dl (31.0-36.0); MEAN CORPUSCULAR VOLUME 93 fL (80-96); MONOCYTES # (AUTO) 0.3 /CMM (0.1-1.30); MONOCYTES % (AUTO) 1.6 % (2.0-12.0); NEUTROPHILS # (AUTO) 15.3 /CMM (1.8-8.9); NEUTROPHILS % (AUTO) 93.6 % (43.0-81.0); PLATELET COUNT (AUTO) 407 /CMM (150-450); RDW COEFFICIENT OF VARIATION 14.1 (11.5-15.0); RED BLOOD CELL COUNT(AUTO) 2.95 MIL/uL (4.5-6.0); WHITE BLOOD COUNT (AUTO) 16.4 K/uL (4.3-11.0)
[2017-04-10] MEDS: PANTOPRAZOLE 40 MG TABLET.DR PO SCH (06:34)
[2017-04-10 06:50] LABS: CALCIUM, SERUM 8.4 mg/dL (8.5-10.1); CARBON DIOXIDE 33 mmol/L (21-32); CHLORIDE 105 mmol/L (98-107); CREATININE 0.7 mg/dL (0.6-1.3); GLUCOSE 144 mg/dL (74-106); MAGNESIUM 2.2 mg/dL (1.8-2.4); POTASSIUM 4.1 mmol/L (3.5-5.1); SODIUM SERUM 145 mmol/L (136-145); UREA NITROGEN, BLOOD 38 mg/dL (7-18)
--- NOTE | 2017-04-10 07:30 | NUR ---
RN/MS NOTES: RECEIVED PT. IN BED W/ HOB ELEVATED. NON VERBAL OPENS EYES ONLY TO TACTILE STIMULI. PT.IN NON VENTURI MASK 30% @ 6LPM SAT. 98%W/ GTF TOLERATING WELL. W/ IV W/ NO S/S OF INFECTION/INFILTRATION NOTED. F/C CDI CLEAR YELLOW URINE VIA GRAVITY. CALL LIGHT W/ REACH. WILL CONTINUE TO KEEP A CLOSE MONITOR.
[2017-04-10 08:00] VITALS: BP 107/63
[2017-04-10] MEDS: DOCUSATE SODIUM LIQ 100 MG/10 ML UDC GT SCH (08:27)
[2017-04-10] MEDS: ASCORBIC ACID 500 MG TABLET PO SCH (08:27)
[2017-04-10] MEDS: ASPIRIN 81 MG TAB.CHEW GT SCH (08:28)
[2017-04-10] MEDS: ZINC SULFATE 220 MG CAPSULE GT SCH (08:28)
[2017-04-10] MEDS: MULTIVIT, IRON, MIN NO. 8, FA 1 TAB PO SCH (08:28)
[2017-04-10] MEDS: Z GUARD REMEDY 2 OZ OINT TP SCH (08:28)
[2017-04-10] MEDS: VANCOMYCIN 0.75 GM in IV D5W 250 ML IV SCH ×2 (10:45→21:30)
[2017-04-10 12:00] VITALS: BP 107/63
[2017-04-10] MEDS ORDERED: IV NS 0.9% 1,000 ML IV PRN (13:30)
[2017-04-10 20:00] VITALS: BP 97/57
--- NOTE | 2017-04-10 20:00 | NUR ---
Received patient responsive only to deep painful stimuli by grimacing.No apparent distress noted.DNR/DNI status.Hospice contact center representative will be here at 2230.O2 6L Venturi mask on saturation 93%. GT feeding in progress no residual noted.HOB elevated.FC draining clear yellow urine moderate amount.Turned and repositioned to comfort.
[2017-04-10] MEDS: FIBERSOURCE HN 1,000 ML BOTTLE GT PRN (20:03)
[2017-04-10] MEDS: ENOXAPARIN SODIUM 40 MG/0.4 ML DISP.SYRIN SQ SCH (21:04)
--- NOTE | 2017-04-10 21:50 | NUR ---
Patient family visiting.
--- NOTE | 2017-04-10 22:30 | NUR ---
Hospice Nurse,Kenia here and hospice eval done with orders from .Nurse Kenia talked to family at bedside.
--- NOTE | 2017-04-10 23:14 | NUR ---
RN NOTES DR. FISHMAN ONCSONU FOR DR. OSORIO, MADE AWARE OF THE HOSPICE ADMISSION AND ORDER. NOTED.
== END 2017-04-10 23:23 | disposition hospice, home (50) | DRG 177 ==
LOC: ER 14:02 → TELE1 16:30 → MEDSG1 18:15
PROVIDERS: ADMIT Legal Medicine; ATTEND Legal Medicine
DX: J69.0 Pneumonitis due to inhalation of food and vomit (principal); J96.00 Acute respiratory failure, unspecified whether with hypoxia or hypercapnia; N17.0 Acute kidney failure with tubular necrosis; R13.10 Dysphagia, unspecified; I12.9 Hypertensive chronic kidney disease with stage 1 through stage 4 chronic kidney disease, or unspecified chronic kidney disease; D64.9 Anemia, unspecified; K59.00 Constipation, unspecified; N18.3 Chronic kidney disease, stage 3 (moderate); Z51.5 Encounter for palliative care; G20 Parkinson's disease; F02.80 Dementia in other diseases classified elsewhere, unspecified severity, without behavioral disturbance, psychotic disturbance, mood disturbance, and anxiety; L98.8 Other specified disorders of the skin and subcutaneous tissue; L08.9 Local infection of the skin and subcutaneous tissue, unspecified; J45.909 Unspecified asthma, uncomplicated; Z93.1 Gastrostomy status; D72.829 Elevated white blood cell count, unspecified; Z66 Do not resuscitate
CPT/HCPCS: 31720; 36415; 36600; 71010-TC; 80048-TC; 80076-TC; 80202-TC; 81000-TC; 82803-TC; 82962-TC; 83605-TC; 83735-TC; 84484-TC; 85025-TC; 85730-TC; 87040-TC; 87081-TC; 87086-TC; 94799-TC; A4606; A6402; J0456; J0696; J1650; J2185; J2270; J2543; J3370; J3490; J7030; J7050; J7060; J7070; Z7610

== ENCOUNTER 2017-04-11 00:06 | Inpatient (IN) | payer OTHER ==
[2017-04-11] VITALS: BP 137/59
--- NOTE | 2017-04-11 | NUR ---
Patient admitted to hospice comfort care only per .Patient responsive only to painful stimuli.Initial admission assessment done.VS stable.With O2 10 Lpm face mask saturation 97%.No acute distress noted.NPO and oral care will be done as needed.Will medicate with morphine and ativan as ordered.Continue to monitor.
[~2017-04-11 00:06] MED LIST: ACET-2605 GT; ACET650S26 GT; ALBU1.257 IH; AMIN30LI4 GT; ASCO500S2 GT; ASPI81TA2 GT; BISA10SU8 RC; CARB-93 GT; DOCU50LI GT; IPRA0.2S9 IH; LACT-209 GT; MAGN400O6 GT; METO25TA20 GT; MULT1TAB11 GT; NA P133E RC; ZINC220C8 GT; ZOLP10TA2 GT
[2017-04-11 01:00] VITALS: BP 125/71
[2017-04-11] MEDS ORDERED: MORPHINE SULFATE INJ 2 MG/ML DISP.SYRIN ONE ×3 (01:02→03:09)
[2017-04-11] MEDS ORDERED: LORAZEPAM INJ 2 MG/ML VIAL ONE ×3 (01:04→03:11)
[2017-04-11] MEDS: MORPHINE SULFATE INJ 2 MG/ML DISP.SYRIN IV SCH ×3 (01:16→03:14)
[2017-04-11] MEDS: LORAZEPAM INJ 2 MG/ML VIAL IV PRN ×2 (01:16→02:14)
--- NOTE | 2017-04-11 03:00 | NUR ---
Bed bath rendered for patient comfort.Complete linens changed.
--- NOTE | 2017-04-11 03:45 | NUR ---
RN NOTES PATIENT AT 0340. CALLED TO ASSESS THE PATIENT, NOTED PATIENT NO SPONTANEOUS RESPIRATION. ALL PULSES NOT PALPABLE. UNRESPONSIVE TO NOXIOUS STIMULI. PUPILS FIXED AND DILATED. NOT COMPATIBLE FOR LIFE. PRONOUNCED . CALLED [facility], SPOKE WITH YAMILA ROMAN. PER YAMILA ROMAN HE WILL CALL THE PATIENT'S FAMILY, NIK FLORES. AND HE WILL PLACE A CALL TO THE FAMILY'S MORTUARY OF CHOICE. NOTIFIED ENTRY LEVEL ACCOUNTING CLERK, ELIJAH.
--- NOTE | 2017-04-11 04:00 | NUR ---
RN NOTES [facility] CALLED AND SPOKE WITH ELISEO WITH REFERENCE # [id number]. PER ELISEO, PATIENT IS RULED OUT D/T AGE. RECEIVED CALL FROM ABEL OF [facility]. PER ABEL, HE HAS SPOKEN TO INK FLORES AND SHE WILL NOT BE ABLE TO COME TO THE HOSPITAL TO SEE THE PATIENT. ABEL HAS CALLED THE FAMILY'S [facility] OF CHOICE[facility], WITH CONTACT INFORMATION OF [phone]. POST MORTEM CARE RENDERED.
--- NOTE | 2017-04-11 04:20 | NUR ---
RN NOTES SPOKE WITH DR. FISHMAN ONCSONU FOR DR. OSORIO. NOTIFIED THAT THE PATIENT HAS . CLARIFIED WITH ABEL, WASHING MACHINE ASSEMBLER, THAT HE WILL BE THE ONE RESPONSIBLE TO INFORM DR. FREED OF THE PATIENT'S . AND PER YAMILA ROMAN IT WILL BE DR. FREED WHO WILL SIGN THE PATIENT'S CERTIFICATE. NOTED.
--- NOTE | 2017-04-11 04:55 | NUR ---
BODY PICKED UP BY RAJEEV ROD FROM [facility].NO BELONGINGS.
== END 2017-04-11 04:00 | disposition expired | DRG 137 ==
LOC: HOSPICE1 00:06
PROVIDERS: ADMIT Internal Medicine; ATTEND Internal Medicine
DX: J69.0 Pneumonitis due to inhalation of food and vomit (principal); J96.00 Acute respiratory failure, unspecified whether with hypoxia or hypercapnia; N17.9 Acute kidney failure, unspecified; I12.9 Hypertensive chronic kidney disease with stage 1 through stage 4 chronic kidney disease, or unspecified chronic kidney disease; N18.3 Chronic kidney disease, stage 3 (moderate); G20 Parkinson's disease; F02.80 Dementia in other diseases classified elsewhere, unspecified severity, without behavioral disturbance, psychotic disturbance, mood disturbance, and anxiety; D72.829 Elevated white blood cell count, unspecified; Z51.5 Encounter for palliative care
CPT/HCPCS: J2060; J2270